=== PATIENT | male | born 1985 | race Caucasian/White ===

== ENCOUNTER 2016-12-22 10:41 | Emergency (ER) | payer OTHER ==
[~2016-12-22] VITALS: Ht 160 cm; Wt 85.3 kg
[2016-12-22 10:48] VITALS: BP 153/66
[2016-12-22 12:20] VITALS: BP 153/66
== END 2016-12-22 12:20 | disposition home or self-care (01) ==
LOC: MED 10:41
DX: H60.8X1 Other otitis externa, right ear (principal); E78.00 Pure hypercholesterolemia, unspecified; R51 Headache
CPT/HCPCS: 99283